=== PATIENT | female | born 1955 | race African-American/Black ===

== ENCOUNTER → 2020-03-13 | Outpatient (CLI) | payer OTHER ==
[~2020-03-13] MED LIST: ACETAMINOPHEN325 M1 PO; DOXYCYCLINE 10100 MG PO; KEFLEX500 MG PO; LORTAB 5 MG/5001 TA1 PO; SYNTHROID100 MCG PO; ZOCOR40 MG PO; [UNRECOGNIZED DRUG - OTHER] PO
== END ==
LOC: MRI 13:03
PROVIDERS: ATTEND Family Medicine
DX: M51.36 Other intervertebral disc degeneration, lumbar region (principal); M47.816 Spondylosis without myelopathy or radiculopathy, lumbar region; M48.07 Spinal stenosis, lumbosacral region